=== PATIENT | male | born 1990 | race Asian ===

== ENCOUNTER 2020-12-02 08:55 | Emergency (ER) | payer OTHER ==
[~2020-12-02] VITALS: Ht 172.7 cm; Wt 54.0 kg
[2020-12-02 10:11] VITALS: BP 106/60
[2020-12-02] MEDS ORDERED: NAPROXEN 250 MG TABLET PO ONE (11:15)
== END 2020-12-02 11:21 ==
LOC: EMS 08:55
DX: N20.0 Calculus of kidney (principal)
CPT/HCPCS: 99282; 99283